=== PATIENT | male | born 1975 | race American Indian/Alaskan Native ===

== ENCOUNTER 2020-02-12 01:13 | Emergency (ER) | payer SELFPAY ==
[2020-02-12 01:34] VITALS: BP 125/55
--- NOTE | 2020-02-12 07:02 | Event Note ---
Date: 02/12/20 The patient was evaluated in the emergency department for symptoms described in the history of present illness. He/she was evaluated in the context of the global COVID-19 pandemic, which necessitated consideration that the patient might be at risk for infection with the virus that causes COVID-19. Institutional protocols and algorithms that pertain to the evaluation of patients at risk for COVID-19 are in a state of rapid change based on information released by regulatory bodies including the CDC and federal and state organizations. These policies and algorithms were followed during the patient's care in the emergency department. Please note that these policies, procedures and recommendations changed on a rapid basis. Please note that this patient left the emergency room before I was able to perform a personal evaluation. Vital Signs 02/12/20 01:33 Temperature 97.7 F Pulse Rate 87 Respiratory 18 Rate Blood Pressure 125/55 [Left] O2 Sat by Pulse 97 Oximetry
== END 2020-02-12 06:15 | disposition left against medical advice (07) ==
LOC: ED 01:13
DX: Z53.21 Procedure and treatment not carried out due to patient leaving prior to being seen by health care provider (principal)